=== PATIENT | female | born 1970 | race Two or more races ===

== ENCOUNTER 2018-10-01 23:39 | Emergency (ER) | payer SELFPAY ==
[2018-10-01 23:45] VITALS: BMI 25.7
[2018-10-01 23:48] VITALS: BP 153/93; TEMP 98.4; O2SAT 100
[2018-10-02 00:27] VITALS: PULSE 108; RESP 17
--- NOTE | 2018-10-02 02:09 | ED PDOC ---
HPI: Psych/Substance Abuse Time Seen by Provider: 10/01/18 23:47 Chief Complaint (Nursing): Alcohol Ingestion History Per: Patient History/Exam Limitations: no limitations Additional Complaint(s): 47 year old brought in by EMS for evaluation of alcohol intoxication, states she drank 3 glasses of wine and then fell in the street because she was "tired." Denies drug abuse. States she scraped her knee but is able to walk. Denies head injury, denies drug abuse. Past Medical History Reviewed: Historical Data, Nursing Documentation, Vital Signs Vital Signs: Last Vital Signs Temp 98.4 F 10/01/18 23:45 Pulse 108 H 10/02/18 01:48 Resp 17 10/02/18 01:48 BP 153/93 H 10/01/18 23:45 Pulse Ox 100 10/02/18 01:48 - Medical History PMH: No Chronic Diseases - Family History Family History: States: Unknown Family Hx - Allergies Allergies/Adverse Reactions: Allergies Allergy/AdvReac Type Severity Reaction Status Date / Time No Known Allergies Allergy Verified 10/01/18 23:45 Review of Systems ROS Statement: Except As Marked, All Systems Reviewed And Found Negative Physical Exam - Reviewed Nursing Documentation Reviewed: Yes Vital Signs Reviewed: Yes - Physical Exam Appears: Positive for: Well, Non-toxic, No Acute Distress Head Exam: Positive for: ATRAUMATIC, NORMAL INSPECTION, NORMOCEPHALIC Skin: Positive for: Normal Color, Warm, DRY Eye Exam: Positive for: EOMI, Normal appearance, PERRL ENT: Positive for: Normal ENT Inspection Neck: Positive for: Normal, Painless ROM Cardiovascular/Chest: Positive for: Regular Rate, Rhythm Respiratory: Positive for: CNT, Normal Breath Sounds Gastrointestinal/Abdominal: Positive for: Normal Exam, Soft Back: Positive for: Normal Inspection Extremity: Positive for: Normal ROM, Other (L knee with abrasion, no deformity of knee or ankle) Neurologic/Psych: Positive for: Alert, hydraulic jack adjuster II-XII, Oriented. Negative for: Motor/Sensory Deficits - ECG O2 Sat by Pulse Oximetry: 100 Pulse Ox Interpretation: Normal Medical Decision Making Medical Decision Making: Patient presenting with alcohol intoxication Patient is currently A&O x 3 with steady gait, initially was unsteady Speech is slurred, but fluent and making sense Patient has capacity to make medical decisions herself, not suicidal or homicidal Patient likely tachycardic due to emotional upset Will discharge Disposition - Clinical Impression Clinical Impression: Alcohol abuse, Contusion - Disposition Referrals: Alcoholics Anonymous [Outside] Disposition: Routine/Home Disposition Time: 01:45 Condition: STABLE Instructions: Alcohol Use - When Is Drinking a Problem?, Taking Care of Bruises Forms: Graph Story (Albanian)
== END 2018-10-02 00:29 | disposition home or self-care (01) ==
LOC: H.ER 23:39
DX: F10.129 Alcohol abuse with intoxication, unspecified (principal); T14.8XXA Other injury of unspecified body region, initial encounter; W19.XXXA Unspecified fall, initial encounter